=== PATIENT | female | born 1990 | race Caucasian/White ===

== ENCOUNTER 2025-02-18 04:34 | Inpatient (IN) | payer SELFPAY, OTHER ==
[2025-02-18] VITALS (50 sets, daily range): BP systolic 103–151; BP diastolic 60–87; PULSE 62–143; RESP 15–20; TEMP 36–37.2; O2SAT 87–100; BMI 34.7
[2025-02-18 04:29] LABS: ROM Internal Control Test YES-OK TO RESULT pt. (Internal QC)
[2025-02-18 04:30] LABS: ROM Patient Test POSITIVE (Negative); Record Kit Lot#, ROM+ K3294
[2025-02-18 05:58] LABS: Absolute Lymphocyte Count 1.21 X10^3/uL (0.83-4.51); Absolute Neutrophil Count 8.1 X10^3/uL (2.0-7.7); Basophil# 0.02 X10^3/uL; Basophil% 0.2 % (0-1); Eosinophil# 0.05 X10^3/uL; Eosinophils% 0.5 % (0-5); Hematocrit 32.8 % (37-47); Hemoglobin 11.4 g/dL (12.0-15.0); Lymphocyte # 1.21 X10^3/ul (0.83-4.51); Lymphocyte % 12.1 % (19-41); Mean Corp Hgb Conc 34.8 g/dL (32-36); Mean Corpuscular Hgb 29.4 pg (27.0-32.0); Mean Corpuscular Volume 84.5 fL (81-99); Mean Platelet Vol. 10.8 fl (6.2-12.0); Monocyte# 0.59 X10^3/uL; Monocyte% 5.9 % (0-10); NRBC Flagged by Analyzer 0 % (0-5); Neutrophil # 8.09 X10^3/uL (2.7-7.7); Neutrophil % 81.1 % (47-70); Platelet Count 188 K/mm3 (150-450); RBC Distribution Width CV 13.6 % (11.6-14.6); Red Blood Count 3.88 M/mm3 (4.2-5.4)
[2025-02-18 06:36] LABS: Syphilis Antibodies Nonreactive (Nonreactive)
[2025-02-18] MEDS: Mag Hydrox/Al Hydrox/Simeth 30 ML UDC PO (06:36)
[2025-02-18] MEDS: Oxytocin 15 Units/NS 250ml 15 UNITS/250 ML IV.SOLN 2 UNITS IV (09:06)
[2025-02-18] MEDS: Lactated Ringers 1,000 ML 50 ML IV (09:06)
--- NOTE | 2025-02-18 15:29 | PN.OBGYN_ITS ---
Subjective Subjective Pt complete and pushing for 2 hours. Not effectively pushing due to pain. Meconium not present. Possible HR decels but difficult to assess with patient movement. Discussed with patient epidural and continued pushing. If she does not make further progress with descent will need c/s. EFW around 9# Objective Data Objective Data Vital Signs: Vital Signs Temp Pulse Resp BP Pulse Ox 97.7 F L 92 16 151/75 H 97 02/18/25 10:18 02/18/25 15:18 02/18/25 10:18 02/18/25 13:22 02/18/25 15:18 Weight: 86.2 kg Body Mass Index (BMI) 34.7 Intake & Output: Intake and Output for Last 24 Hours 02/16/25 02/17/25 02/18/25 23:59 23:59 23:59 Intake Total 48.44 / 48.44 Balance 48.44 / 48.44 Lab / Micro Data 02/18/25 05:30 Labs: Laboratory Results - last 24 hr 02/18/25 03:56: Vag Amniotic Fld Detect POSITIVE H 02/18/25 05:30: WBC 10.0, RBC 3.88 L, Hgb 11.4 L, Hct 32.8 L, MCV 84.5, MCH 29.4, MCHC 34.8, RDW Std Deviation 42.0, RDW Coeff of Louie 13.6, Plt Count 188, MPV 10.8, Immature Gran % (Auto) 0.200, Neut % (Auto) 81.1 H, Lymph % (Auto) 12.1 L, [place] % (Auto) 5.9, Eos % (Auto) 0.5, Baso % (Auto) 0.2, Absolute Neuts (auto) 8.1 H, Absolute Lymphs (auto) 1.21, Nucleated RBC % 0, Syphilis Total Ab Nonreactive, Blood Type A POSITIVE, Antibody Screen NEGATIVE Assessment & Plan (1) SROM (spontaneous rupture of membranes): (2) 41 weeks gestation of : PLAN: Plan Epidural placement and continued maternal effort. Discussed potential for c- section
[2025-02-18] MEDS: fentaNYL-bupivacaine (epidural) 100 ML BAG EPIDURAL (16:19)
--- NOTE | 2025-02-18 18:32 | PN.OBGYN_ITS ---
Subjective Subjective Continued to push after epidural placement. Has not made any progress in 2 hours. Continued thick mec. FHR becoming persistently tachycardic. Patient agreeable to PRCS for failure to descend. Objective Data Objective Data Vital Signs: Vital Signs Temp Pulse Resp BP Pulse Ox 97.7 F L 109 H 15 130/60 H 99 02/18/25 10:18 02/18/25 17:30 02/18/25 15:47 02/18/25 16:16 02/18/25 17:30 Weight: 86.2 kg Body Mass Index (BMI) 34.7 Intake & Output: Intake and Output for Last 24 Hours 02/16/25 02/17/25 02/18/25 23:59 23:59 23:59 Intake Total 1048.44 / 1048.44 Balance 1048.44 / 1048.44 Lab / Micro Data 02/18/25 05:30 Labs: Laboratory Results - last 24 hr 02/18/25 03:56: Vag Amniotic Fld Detect POSITIVE H 02/18/25 05:30: WBC 10.0, RBC 3.88 L, Hgb 11.4 L, Hct 32.8 L, MCV 84.5, MCH 29.4, MCHC 34.8, RDW Std Deviation 42.0, RDW Coeff of Louie 13.6, Plt Count 188, MPV 10.8, Immature Gran % (Auto) 0.200, Neut % (Auto) 81.1 H, Lymph % (Auto) 12.1 L, [place] % (Auto) 5.9, Eos % (Auto) 0.5, Baso % (Auto) 0.2, Absolute Neuts (auto) 8.1 H, Absolute Lymphs (auto) 1.21, Nucleated RBC % 0, Syphilis Total Ab Nonreactive, Blood Type A POSITIVE, Antibody Screen NEGATIVE NST FHR Rate Baby A Baseline: 166 Variability:: Moderate Accelerations:: 15 x 15 Decelerations:: Early, Late and Variable FHR Category:: Category II Uterine Activity:: q2 Assessment & Plan (1) 41 weeks gestation of : (2) SROM (spontaneous rupture of membranes): PLAN: Plan PCS
[2025-02-18] MEDS: Acetaminophen 500 MG Tablet PO (18:35)
[2025-02-18] MEDS: Sodium Citrate/Citric Acid 30 ML UDC PO (18:37)
[2025-02-18] MEDS: Azithromycin 500 MG in 0.9% Normal Saline (250mL Bag) 250 ML 255 MG IV (18:46)
[2025-02-18] MEDS: Cefazolin 2 GM in Syringe IV (18:58)
--- NOTE | 2025-02-18 19:41 | EX.PCM.OBRPT ---
Assessment & Plan (1) S/P : (2) Thick meconium stained amniotic fluid: Maternal Data Information Final EDU: 02/08/25 Gestational age: 41+3 Operative Report (OB) Details Procedure Type: low transverse Date of Procedure: 02/18/25 Procedure Start Time: 19:14 Procedure Stop Time: 19:42 Time of Delivery: 19:18 Pre-Operative Diagnosis: Failure of Descent Post-Operative Diagnosis: Same as Pre-operative diagnosis Classification: JUVENAL Type of Anesthesia: Epidural Antibiotic Given: Ancef 2 grams IV x1 and Zithromax 500 mg/5 mL X1 Drain: Wasserman to straight drain Estimated Blood Loss: 800 cc Findings Description of surgery: Patient presented with SROM. Progressed to complete with Pitocin augmentation. Pushed for 2 hours with little progress but also poor maternal effort due to pain. An epidural was placed and the patient continued to push but made minimal progress. heart rate with intermittent deceleration but overall reassuring. After 4 hours of pushing the FHR became persistently tachycardic and meconium was thick mec. Patient taken to the OR with epidural and Wasserman in place. Epidural was dosed for . She was prepped and draped in the normal sterile fashion. A Pfannenstiel incision was made and carried down to the underlying fascia. The fascia was incised in the midline and extended laterally. The fascia was dissected from the muscle. The muscles divided in the midline. The peritoneum was entered bluntly and extended manually. A bladder blade was placed. A bladder flap was created. A low transverse incision was made and extended bluntly. The head was elevated to the incision. The mouth and nose where bulb suctioned before delivery of the body due to thick meconium. The shoulders delivered easily. The infant cried upon delivery. The cord was cut and clamped. The placenta was delivered with royal traction. The uterus was exteriorized and cleared of all clot and debris. The incision was repaired with 1-0 Vicryl x 2. The uterus was returned the abdomen, The gutter cleared of all clots. The peritoneum was closed with 2-0 Monocryl. The fascia was closed with 1-0 Vicryl. The subcutaneous tissue was reapproximated with 2-0 Monocryl The skin was closed with 4-0. I performed the major parts of the procedure with the RFNA assisting with retraction and closing the skin. The sponge lap and needle count was correct x 2 Surgical findings: Presentation: Vertex and ROP Amniotic Membrane Rupture Type: Spontaneous Amniotic Fluid Description: Thick meconium Placental Delivery Description: Expressed Placenta Disposition: [facility] Specimen collected: No Cord Vessel Description: 3 Vessels Cord Entanglement: None Infant A gender: Male (1 minute): 8 (5 minute): 9 Delayed Cord Clamping: Yes Environmental Science Program Director seo associate: Yes Revenue Stamp Clerk: Yesy Carranza Tasks completed by presser first: Opening & closing and Retracting Additional assistant athletic trainer?: No Complications Complications: No
[2025-02-18] MEDS: Oxytocin 15 Units/NS 250ml 15 UNITS/250 ML IV.SOLN 83 UNITS IV (20:05)
--- NOTE | 2025-02-18 21:15 | NURSING ---
this RN reviewed connect charting of nolberto ISLAS for pre op checklist information. full set of vitals not entered. BP used for post op assessment vitals 130/60.
[2025-02-18] MEDS: Ketorolac 30 MG/ML Syringe IV (21:23)
[2025-02-18] MEDS: Lactated Ringers 1,000 ML 100 ML IV (23:04)
[2025-02-18] MEDS: Acetaminophen 500 MG Tablet 1000 MG PO (23:58)
[2025-02-19] VITALS (11 sets, daily range): BP systolic 101–111; BP diastolic 59–74; PULSE 70–92; RESP 14–16; TEMP 36.1–36.4; O2SAT 95–98
--- NOTE | 2025-02-19 00:09 | NURSING ---
epidural catheter removed . blue tip intact.
[2025-02-19] MEDS: Ketorolac 30 MG/ML Syringe IV ×3 (02:37→14:18)
[2025-02-19 05:09] LABS: Hematocrit 27.2 % (37-47); Hemoglobin 9.5 g/dL (12.0-15.0); Mean Corp Hgb Conc 34.9 g/dL (32-36); Mean Corpuscular Hgb 29.7 pg (27.0-32.0); Mean Platelet Vol. 11.2 fl (6.2-12.0); Platelet Count 168 K/mm3 (150-450); RBC Distribution Width SD 43.6 fl (35.1-43.9); White Blood Count 13.1 K/mm3 (4.4-11.0)
--- NOTE | 2025-02-19 06:50 | PCM.PN.OB ---
Subjective Subjective Doing well. Ambulating and voiding without difficulty. Mild lochia. Breast feeding. Objective Data Objective Data Vital Signs: Vital Signs Temp Pulse Resp BP Pulse Ox O2 Del Method 97.3 F L 70 14 108/65 98 Room Air 02/19/25 04:00 02/19/25 04:44 02/19/25 04:44 02/19/25 04:00 02/19/25 04:44 02/19/25 04:44 Oxygen Delivery Method Room Air Weight: 86.2 kg Body Mass Index (BMI) 34.7 Intake & Output: Intake and Output for Last 24 Hours 02/17/25 02/18/25 02/19/25 23:59 23:59 23:59 Intake Total 1791.06 / 1791.06 518.33 / 518.33 Output Total 2400 / 2400 500 / 500 Balance -608.94 / -608.94 18.33 / 18.33 Lab / Micro Data 02/19/25 04:50 Labs: Laboratory Results - last 24 hr 02/18/25 05:30: Blood Type A POSITIVE, Antibody Screen NEGATIVE 02/19/25 04:50: WBC 13.1 H, RBC 3.20 L, Hgb 9.5 L, Hct 27.2 L, MCV 85.0, MCH 29.7, MCHC 34.9, RDW Std Deviation 43.6, RDW Coeff of Louie 14.0, Plt Count 168, MPV 11.2 ROS Constitutional Constitutional: Denies headache(s) Cardiovascular Cardiovascular: Denies chest pain or dyspnea Gastrointestinal Gastrointestinal: Denies nausea or vomiting Genitourinary Genitourinary: Denies dysuria Physical Exam Const alert, oriented x3 and no apparent distress General Appearance: cooperative and comfortable Eyes PERRL and EOMs intact bilaterally Resp normal respiratory effort GI soft to palpation and non-tender GI Narrative: soft, moderate distention, fundus firm, appropriately tender. Abdominal bandage clean dry and intact Uterus Palpation: uterus fundus firm ( below umbilicus) Extremity normal to inspection and full ROM Neuro oriented x3 and CN's II-XII intact bilaterally Psych mental status grossly normal Assessment & Plan (1) Thick meconium stained amniotic fluid: (2) S/P : PLAN: Plan Routine care
[2025-02-19] MEDS: Acetaminophen 500 MG Tablet 1000 MG PO ×3 (06:58→17:55)
[2025-02-19] MEDS: Senna/Docusate Sodium 1 Tablet PO (08:15)
[2025-02-19] MEDS: 0.9% Saline Lock 10 ML Syringe IV ×2 (08:16→14:17)
[2025-02-19] MEDS: Ibuprofen 600 MG Tablet PO (20:28)
[2025-02-20] MEDS: Acetaminophen 500 MG Tablet 1000 MG PO ×4 (01:17→20:11)
[2025-02-20 02:12] VITALS: BP 119/74; PULSE 74; RESP 16; TEMP 36.1; O2SAT 98
[2025-02-20] MEDS: Ibuprofen 600 MG Tablet PO ×4 (03:46→22:32)
[2025-02-20 07:40] VITALS: BP 118/74; PULSE 74; RESP 16; TEMP 36.3
--- NOTE | 2025-02-20 07:50 | PCM.DC.SUM ---
Providers Date of Admission: 02/18/25 Primary Care Physician: Dr. Jim Busby DO Reason For Visit: PRIMARY C SECTION Diagnosis Discharge Diagnosis (1) Thick meconium stained amniotic fluid: Status: Acute Code(s): P96.83 - Meconium staining (2) S/P : Status: Acute Code(s): Z98.891 - History of uterine scar from previous surgery (3) Care and examination of lactating mother: Status: Acute Code(s): Z39.1 - Encounter for care and examination of lactating mother Medications at Discharge Home Medications vit no.105-iron 30 mg-folic acid 1.4 mg-dha 300 mg oral pack pkg 02/18/25 acetaminophen 500 mg tablet 1,000 mg (2 x 500 mg) PO Q6H #0 tabs 02/20/25 ibuprofen 600 mg tablet 600 mg PO Q6H #0 tabs 02/20/25 sennosides 8.6 mg-docusate sodium 50 mg tablet (Stimulant Laxative Plus) 1 - 2 tab PO DAILY PRN PRN Constipation #0 tabs 02/20/25 Hospital Course Operations section Procedures None Summary of Care Provided Minutes Spent on Discharge: 15 Hospital Course: Patient had section. Hospital course was uneventful. Physical Exam Narrative Patient seen at bedside. Denies any headache, dizziness, SOB, or CP. Pain is controlled. Ambulating and voiding without difficulty. Desires discharge home. Const alert and no apparent distress General Appearance: cooperative and comfortable Exam Limitations: no limitations HEENT normocephalic Eyes General Eye: normal appearance of both eyes Neck full ROM General: normal visual inspection Chest Chest: symmetrical chest wall rise Resp normal respiratory effort and normal air movement Effort and Inspection: symmetric chest movement Auscultation: clear to auscultation bilaterally Cardio regular rate and regular rhythm GI normal to inspection, nondistended, normoactive bowel sounds Back/Spine normal ROM Extremity full ROM and no calf tenderness General Extremity: normal exam except as noted Skin no rashes or lesions noted Wound Narrative: Dressing is dry and intact. Neuro CN's II-XII intact bilaterally Psych mental status grossly normal Weight / BMI Weight Weight: 190 lb 0.615 oz Body Mass Index (BMI) 34.7 ABG / Lab / Microbiology Data 02/19/25 04:50 D/C Instructions Discharge Diet: No restrictions Discharge Activity: May Drive (2 weeks) and May Shower May resume sexual activity in: 6-8 weeks Weight Bearing Status: Weight bearing as tolerated Lifting Restricted to (Lbs): 25 Call your doctor if your incision/area has: Continuous Slow Oozing, Sudden Increased Bleeding, Increased Pain/ Swelling, Increased Redness, Foul Smelling Discharge and Swelling at the incision site Call your doctor if you observe: Fever of 101 or Higher, Numbness or Tingling, Using more than 1 pad per hour, Shortness of breath, Dizziness, Swelling in the ankles, Chest pain, Calf discomfort and Uncontrolled pain Suture Line Care: Avoid Pulling/Pushing Remove Dressing in: 5 days (Remove yourself or call office and schedule appointment for dressing removal.) DC O2, CPAP, BIPAP Needs Home O2 Discharge instructions: No When: 5 days for dressing removal or 2 weeks for post appointment. Meaningful Use Info Meaningful Use Meaningful Use Diagnoses (Choose all that apply): None applicable Ischemic Stroke Statin Dosing Therapy Reference: STATIN DOSE THERAPY REFERENCE: * Patients > 75 years receive moderate or high dose statin therapy. * Patients 75 years or YOUNGER should receive HIGH intensity statin dose unless contraindicated. You will be required to document reason for non-treatment if statin daily dose does not meet guidelines. HIGH DOSE STATIN THERAPY DAILY Atorvastatin > than or = to 40 mg Rosuvastatin > than or = to 20 mg Amlodipine + Atorvastatin > than or = to 2.5/40 mg Ezetimibe + Simvastatin 10/80 mg Simvastatin 80mg Discharge Plan Admission Admit Date/Time: 02/18/25 04:34 Primary Reason for Your Visit: Labor and Delivery Attending Provider: Flores Faulkner Primary Care Provider: Jim Busby Discharge Orders/Prescriptions Prescriptions: New sennosides-docusate sodium [Stimulant Laxative Plus] 8.6-50 mg Tablet 1 - 2 tab PO DAILY PRN PRN (Reason: Constipation) Qty: 0 0RF acetaminophen 500 mg Tablet 1,000 mg PO Q6H Qty: 0 0RF ibuprofen 600 mg Tablet 600 mg PO Q6H Qty: 0 0RF Continued [id number] ac-dha 30 mg iron- 1.4 mg-300 mg combo pack Referrals / Follow Up: Omayra Canales CNM [Med Staff - [facility] Practice Prof] - Kehinde,Jim, DO [Primary Care Provider] - Disposition Disposition (needs filled in before D/C Order can be placed): Home, Self Care
[2025-02-20] MEDS: Senna/Docusate Sodium 1 Tablet PO (13:45)
[2025-02-20 14:00] VITALS: BP 130/84; PULSE 87; RESP 16; TEMP 36.6
[2025-02-20 20:29] VITALS: BP 125/89; PULSE 80; RESP 16; TEMP 36.8; O2SAT 97
[2025-02-21] VITALS: BP 120/89; PULSE 79; RESP 16; TEMP 36.6; O2SAT 99
[2025-02-21] MEDS: Acetaminophen 500 MG Tablet 1000 MG PO ×4 (01:35→19:42)
[2025-02-21] MEDS: Ibuprofen 600 MG Tablet PO ×4 (04:31→23:55)
--- NOTE | 2025-02-21 06:56 | PCM.DC.SUM ---
Providers Date of Admission: 02/18/25 Primary Care Physician: Dr. Jim Busby DO Reason For Visit: PRIMARY C SECTION Diagnosis Discharge Diagnosis (1) Thick meconium stained amniotic fluid: Status: Acute Code(s): P96.83 - Meconium staining (2) S/P : Status: Acute Code(s): Z98.891 - History of uterine scar from previous surgery (3) Care and examination of lactating mother: Status: Acute Code(s): Z39.1 - Encounter for care and examination of lactating mother Plan POD 3 C/S Pain controlled with PO medications D/C home with follow up next week in office Medications at Discharge Home Medications vit no.105-iron 30 mg-folic acid 1.4 mg-dha 300 mg oral pack pkg 02/18/25 acetaminophen 500 mg tablet 1,000 mg (2 x 500 mg) PO Q6H #0 tabs 02/20/25 ibuprofen 600 mg tablet 600 mg PO Q6H #0 tabs 02/20/25 sennosides 8.6 mg-docusate sodium 50 mg tablet (Stimulant Laxative Plus) 1 - 2 tab PO DAILY PRN PRN Constipation #0 tabs 02/20/25 Hospital Course Operations section Procedures None Summary of Care Provided Minutes Spent on Discharge: 15 Hospital Course: Patient had section. Hospital course was uneventful. Physical Exam Narrative Dressing is dry and intact Const alert and no apparent distress General Appearance: cooperative and comfortable Exam Limitations: no limitations HEENT normocephalic Eyes General Eye: normal appearance of both eyes Neck full ROM General: normal visual inspection Chest Chest: symmetrical chest wall rise Resp normal respiratory effort and normal air movement Effort and Inspection: symmetric chest movement Auscultation: clear to auscultation bilaterally Cardio regular rate and regular rhythm GI normal to inspection, nondistended, normoactive bowel sounds Back/Spine normal ROM Extremity full ROM and no calf tenderness General Extremity: normal exam except as noted Skin no rashes or lesions noted Wound Narrative: Dressing is dry and intact. Neuro CN's II-XII intact bilaterally Psych mental status grossly normal Weight / BMI Weight Weight: 190 lb 0.615 oz Body Mass Index (BMI) 34.7 ABG / Lab / Microbiology Data 02/19/25 04:50 D/C Instructions Discharge Diet: No restrictions Discharge Activity: May Drive (2 weeks) and May Shower May resume sexual activity in: 6-8 weeks Weight Bearing Status: Weight bearing as tolerated Lifting Restricted to (Lbs): 25 Call your doctor if your incision/area has: Continuous Slow Oozing, Sudden Increased Bleeding, Increased Pain/ Swelling, Increased Redness, Foul Smelling Discharge and Swelling at the incision site Call your doctor if you observe: Fever of 101 or Higher, Numbness or Tingling, Using more than 1 pad per hour, Shortness of breath, Dizziness, Swelling in the ankles, Chest pain, Calf discomfort and Uncontrolled pain Suture Line Care: Avoid Pulling/Pushing Remove Dressing in: 5 days (Remove yourself or call office and schedule appointment for dressing removal.) DC O2, CPAP, BIPAP Needs Home O2 Discharge instructions: No When: 5 days for dressing removal or 2 weeks for post appointment. Meaningful Use Info Meaningful Use Meaningful Use Diagnoses (Choose all that apply): None applicable Ischemic Stroke Statin Dosing Therapy Reference: STATIN DOSE THERAPY REFERENCE: * Patients > 75 years receive moderate or high dose statin therapy. * Patients 75 years or YOUNGER should receive HIGH intensity statin dose unless contraindicated. You will be required to document reason for non-treatment if statin daily dose does not meet guidelines. HIGH DOSE STATIN THERAPY DAILY Atorvastatin > than or = to 40 mg Rosuvastatin > than or = to 20 mg Amlodipine + Atorvastatin > than or = to 2.5/40 mg Ezetimibe + Simvastatin 10/80 mg Simvastatin 80mg Discharge Plan Admission Admit Date/Time: 02/18/25 04:34 Primary Reason for Your Visit: Labor and Delivery Attending Provider: Flores Faulkner Primary Care Provider: Jim Busby Discharge Orders/Prescriptions Prescriptions: New sennosides-docusate sodium [Stimulant Laxative Plus] 8.6-50 mg Tablet 1 - 2 tab PO DAILY PRN PRN (Reason: Constipation) Qty: 0 0RF acetaminophen 500 mg Tablet 1,000 mg PO Q6H Qty: 0 0RF ibuprofen 600 mg Tablet 600 mg PO Q6H Qty: 0 0RF Continued [id number] ac-dha 30 mg iron- 1.4 mg-300 mg combo pack Referrals / Follow Up: Omayra Canales CNM [Med Staff - [facility] Practice Prof] - Jim Busby DO [Primary Care Provider] - Disposition Disposition (needs filled in before D/C Order can be placed): Home, Self Care
[2025-02-21 08:15] VITALS: BP 126/90; PULSE 73; RESP 16; TEMP 36.3; O2SAT 95
[2025-02-21 13:47] VITALS: BP 121/89; PULSE 82; RESP 16; TEMP 36.6; O2SAT 98
[2025-02-21 20:00] VITALS: BP 140/94; PULSE 77; RESP 16; TEMP 36.3; O2SAT 98
[2025-02-22 02:00] VITALS: BP 131/89; PULSE 82; RESP 16; TEMP 36.3; O2SAT 97
[2025-02-22] MEDS: Acetaminophen 500 MG Tablet 1000 MG PO ×2 (02:00→07:55)
[2025-02-22] MEDS: Ibuprofen 600 MG Tablet PO ×2 (05:51→12:03)
[2025-02-22 07:56] VITALS: BP 123/97; PULSE 78; RESP 16; TEMP 36.3
--- NOTE | 2025-02-22 09:28 | PCM.PN.OB ---
Subjective Subjective Doing well per patient and nursing staff. Ambulating and taking PO without difficulty. Voiding and passing flatus. Pain controlled. , services for assistance. Denies headache, visual changes, chest pain, shortness of breath, leg pain or increased bleeding. Lochia normal. Objective Data Objective Data Vital Signs: Vital Signs Temp Pulse Resp BP Pulse Ox O2 Del Method 97.3 F L 78 16 123/97 H 97 Room Air 02/22/25 07:56 02/22/25 07:56 02/22/25 07:56 02/22/25 07:56 02/22/25 02:00 02/22/25 07:56 Oxygen Delivery Method Room Air Weight: 190 lb 0.615 oz Body Mass Index (BMI) 34.7 Lab / Micro Data 02/19/25 04:50 ROS Constitutional Constitutional: Reports systems reviewed and no addt'l complaints, except as documented; Denies headache(s) Eyes Eyes: Denies acute decrease in peripheral vision, blurry vision or change in vision ENT HEENT: Reports systems reviewed and no addt'l complaints, except as documented Cardiovascular Cardiovascular: Denies chest pain or dizziness Respiratory/Chest Respiratory/Chest: Denies cough, dyspnea, dyspnea on exertion, shortness of breath at rest or shortness of breath with exertion Gastrointestinal Gastrointestinal: Denies abdominal pain, diarrhea, nausea or vomiting Genitourinary Genitourinary: Denies abdominal discomfort Musculoskeletal Musculoskeletal: Denies limited range of motion Integumentary Integumentary: Reports systems reviewed and no addt'l complaints, except as documented Neurologic Neurologic: Reports systems reviewed and no addt'l complaints, except as documented Psychiatric Psychiatric: Reports systems reviewed and no addt'l complaints, except as documented Endocrine Endocrinology: Reports systems reviewed and no addt'l complaints, except as documented Hematologic/Lymphatic Hematologic/Lymphatic: Reports systems reviewed and no addt'l complaints, except as documented Allergic/Immunologic Allergic/Immunologic: Reports systems reviewed and no addt'l complaints, except as documented Physical Exam Const alert and oriented x3 General Appearance: cooperative Orientation / Consciousness: awake, oriented to person, oriented to place and oriented to time Exam Limitations: no limitations HEENT normocephalic Head and Scalp: normal to inspection, normocephalic and atraumatic Face and Sinus: normal facial exam Eyes General Eye: normal appearance of both eyes Neck full ROM Chest Chest: symmetrical chest wall rise Resp normal respiratory effort and normal air movement Auscultation: clear to auscultation bilaterally Cardio regular rate, regular rhythm, S1 normal heart sound, S2 normal heart sound, no murmurs, no rub, no gallops and no clicks GI normal to inspection, nondistended, normoactive bowel sounds and non-tender Narrative: dressing clean and dry Bladder / Kidney Exam: no CVA tenderness Back/Spine normal ROM Extremity normal to inspection and full ROM Skin no rashes or lesions noted Neuro oriented x3, CN's II-XII intact bilaterally and moves all extremities Sensorium / Orientation: awake, alert and oriented to person Motor Exam: clonus absent Deep Tendon Reflexes: Rt Patellar (L4): 2+ and Lt Patellar (L4): 2+ Assessment & Plan (1) Care and examination of lactating mother: (2) S/P : PLAN: Plan 1) Routine care, POD#4 LTCS 2) Vitals signs stable 3) Pain controlled 4) , services PRN 5) D/C home 6) Follow up in 1 weeks and 6 weeks
[2025-02-22 12:55] VITALS: BP 132/96; PULSE 78; RESP 17
--- NOTE | 2025-02-24 18:32 | PCM.HP.OB ---
HPI - General General Date of Admission: 02/18/25 Date of Service: 02/18/25 Chief Complaint: ROM HPI Narrative MADAI GIORDANO, is a 34 F who presents SROM at 0100. Maternal Data Information Final EDU: 02/08/25 Gestational age: 41 week [facility] Medical History Infertility Home Medications ?Medication ?Instructions ?Recorded ?Last Taken ?Type vit no.105-iron 30 pkg 02/18/25 Unknown History mg-folic acid 1.4 mg-dha 300 mg oral pack acetaminophen 500 mg tablet 1,000 mg (2 x 500 mg) PO Q6H #0 02/20/25 Unknown Rx tabs ibuprofen 600 mg tablet 600 mg PO Q6H #0 tabs 02/20/25 Unknown Rx sennosides 8.6 mg-docusate sodium 1 - 2 tab PO DAILY PRN PRN 02/20/25 Unknown Rx 50 mg tablet (Stimulant Laxative Constipation #0 tabs Plus) Allergy/AdvReac Type Severity Reaction Status Date / Time No Known Allergies Allergy Verified 02/18/25 03:48 Surgical History History of surgery History of surgery Social History Smoking Status: Never smoker History 1 Elective abortions Hx Para 0 Spontaneous abortions Hx # Term Pregnancies Ectopic pregnancies Hx # Pregnancies Multiple births # of living children ROS Constitutional Constitutional: Denies fatigue, fever(s) or malaise Eyes Eyes: Denies change in vision ENT HEENT: Denies dizziness or headache(s) Cardiovascular Cardiovascular: Denies chest pain, dyspnea or lightheadedness Respiratory/Chest Respiratory/Chest: Denies cough or dyspnea Gastrointestinal Gastrointestinal: Denies change in bowel habits Genitourinary Genitourinary: Denies burning urination or genital lesions Integumentary Integumentary: Denies rash Neurologic Neurologic: Denies confusion, dizziness, headache(s), numbness or weakness Vital Signs Vital Signs Vital Signs: Weight Weight: 86.2 kg Body Mass Index (BMI) 34.7 Physical Exam Const alert and no apparent distress General Appearance: cooperative HEENT normocephalic Resp normal respiratory effort Cardio regular rate GI soft to palpation GI Narrative: gravid, nontender, appropriate for gestational age Extremity no calf tenderness General Extremity: edema Skin no wounds Rashes: No rashes noted Psych activity/motor behavior normal Labs Labs Labs: Blood Type A POSITIVE Antibody Screen NEGATIVE Hct 27.2 % (37-47) L Hgb 9.5 g/dL (12.0-15.0) L Syphilis Total Ab Nonreactive (Nonreactive) Rhogam given: No Assessment & Plan (1) SROM (spontaneous rupture of membranes): (2) 41 weeks gestation of : PLAN: Plan Pitocin prn epidural prn
== END 2025-02-22 13:50 | disposition home or self-care (01) | DRG 788 ==
LOC: WPOUT 04:35 → WP 04:35
PROVIDERS: Admitting Provider Advanced Practice Midwife; PCP Family Medicine; Visit Provider Obstetrics & Gynecology
DX: O48.0 Post-term pregnancy (principal); O42.02 Full-term premature rupture of membranes, onset of labor within 24 hours of rupture; O77.0 Labor and delivery complicated by meconium in amniotic fluid; Z37.0 Single live birth; O76 Abnormality in fetal heart rate and rhythm complicating labor and delivery; O62.1 Secondary uterine inertia; Z3A.41 41 weeks gestation of pregnancy
CPT/HCPCS: 59025; 59050; 84112; 85025; 85027; 86780; 86850; 86900; 86901; 99221; A4216; G0378; J2405